=== PATIENT | female | born 1980 | race Caucasian/White ===

== ENCOUNTER 2019-11-04 06:07 | Day surgery (SDC) | payer OTHER, SELFPAY ==
[~2019-11-04] VITALS: Ht 152.4 cm; Wt 70.8 kg
[2019-11-04] MEDS ORDERED: LR 1,000 ML IV SCH (11:32)
[2019-11-04] MEDS ORDERED: HYDROmorphone 1 MG INJ. 1 MG/ML AMPUL IVP PRN (11:45)
[2019-11-04] MEDS ORDERED: KETOROLAC TROMETHAMINE 30 MG VIAL IVP PRN (11:45)
[2019-11-04] MEDS ORDERED: ONDANSETRON HCL 4 MG/2 ML VIAL IVP PRN (11:45)
[2019-11-04] MEDS ORDERED: HYDROmorphone 2 MG/ML VIAL ONE (12:03)
[2019-11-04] MEDS ORDERED: ONDANSETRON HCL 4 MG/2 ML VIAL ONE (12:03)
[2019-11-04] MEDS ORDERED: DEXAMETHASONE SOD PHOSPHATE 4 MG/ML VIAL ONE (12:03)
[2019-11-04] MEDS ORDERED: METOCLOPRAMIDE HCL 10 MG/2 ML VIAL ONE (12:03)
[2019-11-04] MEDS ORDERED: fentaNYL CITRATE/PF 100 MCG/2 ML AMP ONE (12:03)
[2019-11-04] MEDS ORDERED: MIDAZOLAM HCL 5 MG/ML VIAL (VERSED) IV ONE (12:03)
[2019-11-04] MEDS ORDERED: PROPOFOL 200MG/ 20ML VIAL (DIPRIVAN) IV ONE (12:03)
[2019-11-04] MEDS ORDERED: LR 1,000 ML IV.SOLN IV ONE (12:03)
[2019-11-04] MEDS ORDERED: SEVOFLURANE 15 MIN GAS INH ONE (12:03)
[2019-11-04] MEDS ORDERED: SUCCINYLCHOLINE CHLORIDE 20 MG/ML(QUELICIN) ONE (12:03)
[2019-11-04] MEDS ORDERED: NS IRRIG SOLN 1000 ML IR ONE (12:03)
[2019-11-04] MEDS ORDERED: ONDANSETRON 4 MG ODT TAB PO PRN (12:45)
[2019-11-04] MEDS ORDERED: HYDROcodone/ACETAMIN 5-325 MG TAB (NORCO/ VICODIN) PO PRN (12:45)
[2019-11-04 13:30] VITALS: BP_SYST 110
[2019-11-10] MEDS ORDERED: CALC-823 PO (03:31)
== END 2019-11-04 14:30 | disposition home or self-care (01) ==
LOC: SDS 06:07 → SMU 06:08 → EDSTATUS 07:30 → SDS 14:30
PROVIDERS: ATTEND Otolaryngology
DX: E04.1 Nontoxic single thyroid nodule (principal); Z90.89 Acquired absence of other organs; Z20.828 Contact with and (suspected) exposure to other viral communicable diseases
CPT/HCPCS: 60220; 88307; 95868; C1782; J0330; J1100; J1170; J2250; J2405; J2704; J2765; J3010; J7120; U0003

== ENCOUNTER 2019-12-16 06:37 | Day surgery (SDC) | payer OTHER, SELFPAY ==
[~2019-12-16] VITALS: Ht 152.4 cm; Wt 70.8 kg
[~2019-12-16 06:37] MED LIST: CALC-823 PO
[2019-12-16] MEDS ORDERED: CEFAZOLIN SOD 2 GM in D5W 50 ML IV ONE (07:00)
[2019-12-16 08:17] LABS: HCG,QUAL RESULT NEGATIVE (NEGATIVE)
[2019-12-16] MEDS ORDERED: ONDANSETRON HCL 4 MG/2 ML VIAL IVP PRN ×2 (09:30→11:45)
[2019-12-16] MEDS ORDERED: HYDROmorphone 1 MG INJ. 1 MG/ML AMPUL IVP PRN ×2 (09:30)
[2019-12-16] MEDS ORDERED: ONDANSETRON 4 MG ODT TAB PO PRN (11:45)
[2019-12-16] MEDS ORDERED: HYDROcodone/ACETAMIN 5-325 MG TAB (NORCO/ VICODIN) PO PRN (11:45)
[2019-12-16] MEDS ORDERED: HYDROmorphone 1 MG INJ. 1 MG/ML AMPUL ONE (12:39)
[2019-12-16 13:00] VITALS: BP_SYST 118
[2019-12-16 13:07] VITALS: BP_SYST 118
[2019-12-16] MEDS: KCL 20 mEq in D5/0.45NS 1000mL 1,000 ML IV SCH (15:08)
[2019-12-16 15:45] VITALS: BP_SYST 101
[2019-12-16] MEDS ORDERED: MORPHINE 2 MG/ML INJ. SYRINGE IVP PRN (19:30)
[2019-12-16 20:00] VITALS: BP_SYST 103
[2019-12-16] MEDS: MORPHINE 2 MG/ML INJ. SYRINGE IVP PRN (21:15)
[2019-12-16] MEDS: CALCIUM 500 MG/TAB PO SCH (21:15)
[2019-12-16 23:23] LABS: BASOPHILS % (AUTO) 0.2 % (0.0-2.0); EOSINOPHILS % (AUTO) 0.3 % (0.0-4.0); HEMATOCRIT 35.7 % (36-48); HEMOGLOBIN 12.4 g/dL (12.0-16.0); LYMPHOCYTES # (AUTO) 1.8 K/uL (1.0-5.5); LYMPHOCYTES % (AUTO) 17.4 % (20.5-51.5); MEAN CORPUSCULAR HEMOGLOBIN 31 pg (27-31); MEAN CORPUSCULAR HGB CONC 35 % (32-36); MEAN CORPUSCULAR VOLUME 88 fL (79.0-98.0); MONOCYTES # (AUTO) 0.5 K/uL (0.0-1.0); MONOCYTES % (AUTO) 4.5 % (1.7-9.3); NEUTROPHILS % (AUTO) 77.6 % (40.0-70.0); PLATELET COUNT (AUTO) 196 K/uL (130-430); RED BLOOD CELL COUNT(AUTO) 4.06 MIL/uL (4.2-6.2); RED CELL DISTRIBUTION WIDTH 12.6 % (9.0-15.0); WHITE BLOOD COUNT (AUTO) 10.3 K/uL (4.8-10.8)
[2019-12-16 23:36] LABS: ALBUMIN 3.1 g/dL (3.4-4.8); CALCIUM 7.4 mg/dL (8.4-11.0)
[2019-12-17] MEDS: KCL 20 mEq in D5/0.45NS 1000mL 1,000 ML IV SCH ×2 (00:18→10:30)
[2019-12-17] MEDS: MORPHINE 2 MG/ML INJ. SYRINGE IVP PRN ×4 (00:19→09:45)
[2019-12-17 01:24] VITALS: BP_SYST 102
[2019-12-17 06:50] LABS: ALBUMIN 2.9 g/dL (3.4-4.8); CALCIUM 7.5 mg/dL (8.4-11.0)
[2019-12-17] MEDS ORDERED: LEVOTHYROXINE SODIUM 0.112 MG TABLET PO SCH (07:00)
[2019-12-17 08:00] VITALS: BP_SYST 105
[2019-12-17] MEDS: CALCIUM 500 MG/TAB PO SCH ×2 (09:37→15:00)
[2019-12-17 12:00] VITALS: BP_SYST 100
[2019-12-17] MEDS ORDERED: HYDR-4272 PO (14:20)
[2019-12-17] MEDS ORDERED: LEVO112T5 PO (14:21)
== END 2019-12-17 15:15 | disposition home or self-care (01) ==
LOC: SDS 06:37 → SMU 06:37 → EDSTATUS 08:00 → SMU 13:04 → SDS 12-17 15:15
PROVIDERS: ATTEND Otolaryngology
DX: C73 Malignant neoplasm of thyroid gland (principal); Z90.49 Acquired absence of other specified parts of digestive tract; Z98.890 Other specified postprocedural states; Z20.828 Contact with and (suspected) exposure to other viral communicable diseases
CPT/HCPCS: 36415; 60240; 82040; 82310; 83970; 84703; 85025; 87081; 88307; C1782; J0690; J1170; J2270 ×2; J2405; J7060; U0003